=== PATIENT | female | born 1995 | race Caucasian/White ===

== ENCOUNTER 2018-04-20 12:48 | Emergency (ER) | payer OTHER ==
[2018-04-20] MEDS ORDERED: Ibuprofen 200 MG TAB ONE (13:07)
== END 2018-04-20 13:32 | disposition home or self-care (01) ==
LOC: ERS 12:48
DX: M54.6 Pain in thoracic spine (principal); X50.9XXA Other and unspecified overexertion or strenuous movements or postures, initial encounter
CPT/HCPCS: 99283